=== PATIENT | male | born 1990 | race African-American/Black ===

== ENCOUNTER 2017-11-03 22:40 | Emergency (ER) | payer SELFPAY ==
[2017-11-03] MEDS ORDERED: Take Home: Codeine/Promethazine 10-6.25 MG/5 ML Syrup 5 ML, 2 Cup Pack PO ONE ×2 (23:34→23:39)
[2017-11-03] MEDS ORDERED: Take Home: Oseltamivir 75 MG Cap, 2 Cap Pack PO ONE (23:34)
[2017-11-03] MEDS ORDERED: Codeine/Promethazine 10-6.25 MG/5 ML Syrup 5 ML UD Cup ONE (23:42)
--- NOTE | 2017-11-04 01:10 | EDM.PDOC ---
ED HPI GENERAL MEDICAL PROBLEM - General Chief Complaint: General Stated Complaint: FEVER, COUGH Time Seen by Provider: 11/03/17 22:50 Source of Information: Reports: Patient History Limitations: Reports: No Limitations - History of Present Illness INITIAL COMMENTS - FREE TEXT/NARRATIVE: Pt. states that he has been experiencing cough, sore throat, and chest congestion for 10-14 days. He states that he is experiencing body aches and fever as well. Pt. complains of post tussive vomiting as well. He is not experiencing any diarrhea. Onset: Today Duration: Getting Worse Location: Reports: Chest, Generalized Severity: Moderate Generalized Pain Score (Numeric/FACES): 10 - Related Data Allergies Allergy/AdvReac Type Severity Reaction Status Date / Time Iodine and Iodide Containing Allergy Cannot Verified 11/03/17 22:43 Produc Remember Home Meds: Home Meds . [No Known Home Meds] 11/03/17 [History] Past Medical History - Past Health History Medical/Surgical History: Denies Medical/Surgical History Respiratory History: Reports: Other (See Below) Other Respiratory History: stress induced asthma - Past Surgical History HEENT Surgical History: Reports: Adenoidectomy, Myringotomy w Tube(s), Tonsillectomy GI Surgical History: Reports: Appendectomy Social & Family History - Tobacco Use Smoking Status *Q: Current Every Day Smoker Years of Tobacco use: 3 Packs/Tins Daily: 0.2 ED ROS GENERAL - Review of Systems Review Of Systems: See Below Constitutional: Reports: No Symptoms HEENT: Reports: Rhinitis, Throat Pain Respiratory: Reports: Shortness of Breath, Cough Cardiovascular: Reports: No Symptoms Endocrine: Reports: No Symptoms GI/Abdominal: Reports: No Symptoms Musculoskeletal: Reports: No Symptoms Skin: Reports: No Symptoms Neurological: Reports: No Symptoms Psychiatric: Reports: No Symptoms Hematologic/Lymphatic: Reports: No Symptoms Immunologic: Reports: No Symptoms ED EXAM, GENERAL - Physical Exam Exam: See Below Exam Limited By: No Limitations General Appearance: Alert, WD/WN, No Apparent Distress Eye Exam: Bilateral Eye: EOMI, Normal Inspection, PERRL Ears: Normal External Exam, Normal Canal, Hearing Grossly Normal, Normal TMs Ear Exam: Bilateral Ear: Auricle Normal, Canal Normal, TM normal Nose: Normal Inspection, Normal Mucosa, No Blood Throat/Mouth: Normal Inspection, Normal Lips, Normal Teeth, Normal Gums, Normal Oropharynx, Normal Voice, No Airway Compromise, Inflammation Head: Atraumatic, Normocephalic Neck: Normal Inspection, Supple, Non-Tender, Full Range of Motion Respiratory/Chest: No Respiratory Distress, Lungs Clear, Normal Breath Sounds, No Accessory Muscle Use, Chest Non-Tender Cardiovascular: Normal Peripheral Pulses, Regular Rate, Rhythm, No Edema, No Gallop, No JVD, No Murmur, No Rub GI/Abdominal: Normal Bowel Sounds, Soft, Non-Tender, No Organomegaly, No Distention, No Abnormal Bruit, No Mass Back Exam: Normal Inspection, Full Range of Motion, NT Extremities: Normal Inspection, Normal Range of Motion, Non-Tender, Normal Capillary Refill, No Pedal Edema Neurological: Alert, Oriented, CN II-XII Intact, Normal Cognition, Normal Gait, Normal Reflexes, No Motor/Sensory Deficits Psychiatric: Normal Affect, Normal Mood Skin Exam: Warm, Dry, Intact, Normal Color, No Rash Course - Vital Signs Last Recorded V/S: Last Vital Signs Temp 38.4 C H 11/03/17 22:41 Pulse 102 H 11/03/17 22:41 Resp 18 11/03/17 22:41 BP 148/65 H 11/03/17 22:41 Pulse Ox 95 11/03/17 22:41 - Orders/Labs/Meds Orders: Active Orders 24 hr Category Date Time Status Chest 2V [CR] Stat Exams 11/03/17 22:50 Taken Meds: Medications Discontinued Medications Generic Name Dose Route Start Last Admin Trade Name Freq PRN Reason Stop Dose Admin Oseltamivir Phosphate 1 packet 11/03/17 23:34 11/03/17 23:45 Take Home: Oseltamivir 75 Mg Cap, 2 Cap Pack PO 11/03/17 23:35 1 packet ONETIME ONE Administration Promethazine HCl/Codeine 1 packet 11/03/17 23:34 Take Home: Codeine/Prometh 10-6.25 Mg, 2 Pack PO 11/03/17 23:35 ONETIME ONE Promethazine HCl/Codeine 1 packet 11/03/17 23:39 11/03/17 23:45 Take Home: Codeine/Prometh 10-6.25 Mg, 2 Pack PO 11/03/17 23:40 1 packet ONETIME ONE Administration Promethazine HCl/Codeine Confirm 11/03/17 23:42 Phenergan With Codeine Administered 11/03/17 23:43 Dose 10 ml .ROUTE .STK-MED ONE Departure - Departure Time of Disposition: 23:20 Disposition: Home, Self-Care 01 Condition: Good Clinical Impression: Influenza A - Discharge Information Instructions: Influenza, Adult, [id number] Referrals: PCP,Unobtain [Primary Care Provider] - Forms: ED Department Discharge Additional Instructions: Tamiflu 75mg twice daily phenergan with codeine 5ml every 4-6 hours Ibuprofen 800mg every 8 hours Follow-up in clinic in 10-14 days, sooner if not gradually improving - My Orders Last 24 Hours: My Active Orders 11/03/17 22:50 Chest 2V [CR] Stat - Assessment/Plan Last 24 Hours: My Active Orders 11/03/17 22:50 Chest 2V [CR] Stat
== END 2017-11-03 23:53 | disposition home or self-care (01) ==
LOC: VM.ED 22:40
DX: J11.1 Influenza due to unidentified influenza virus with other respiratory manifestations (principal); F17.210 Nicotine dependence, cigarettes, uncomplicated; Z91.09 Other allergy status, other than to drugs and biological substances
CPT/HCPCS: 71046; 87804; 99284; A9270